=== PATIENT | male | born 1950 | race American Indian/Alaskan Native ===

== ENCOUNTER 2017-01-04 06:24 | Day surgery (SDC) | payer OTHER ==
--- NOTE | 2017-01-04 07:28 | Anesthesia Day of Surgery ---
Anesthesia Day of Surgery - Day of Surgery Patient Examined: Yes Patient H&P Reviewed: Yes Patient is NPO: Yes
--- NOTE | 2017-01-04 07:29 | Anesthesia Consultation ---
Anesthesia Consult and Med Hx Date of service: 01/04/17 - Airway Anesthetic Teeth Evaluation: Good (front tooth chip) ROM Head & Neck: Adequate Mental/Hyoid Distance: Adequate Mallampati Class: Class II Intubation Access Assessment: Probably Good - Pulmonary Exam CTA: Yes - Cardiac Exam Cardiac Exam: RRR - Pre-Operative Health Status ASA Pre-Surgery Classification: ASA2 Proposed Anesthetic Plan: MAC - Pulmonary Hx Smoking: No Hx Sleep Apnea: No - Cardiovascular System Hx Hypertension: Yes - Central Nervous System Hx Seizures: No CVA: No - Endocrine Hx Renal Disease: No Hx Liver Disease: No Hx Non-Insulin Dependent Diabetes: No - Additional Comments Anesthesia Medical History Comments: NAC
[2017-01-04] MEDS ORDERED: DIPRIVAN 10 MG/ML IV ONE ×2 (07:32)
[2017-01-04] MEDS ORDERED: NACL 0.9% 1000 ML 1,000 ML IV SCH (08:00)
[2017-01-04] MEDS ORDERED: XYLOCAINE MPF 2% ONE (08:30)
--- NOTE | 2017-01-04 08:36 | Short Stay Summary ---
Short Stay Documentation - Allergies and Medications Current Medications: Allergies Penicillins Allergy (Mild, Verified 01/04/17 07:46) Unknown Home Medications Medication Instructions Recorded Confirmed Last Taken Type Janumet 50-1,000 mg 1 tab PO DAILY 01/02/17 01/04/17 01/03/17 History Lisinopril 1 tab PO DAILY 01/02/17 01/04/17 01/03/17 History Active Medications Sodium Chloride (Nacl 0.9% 1000 Ml) 1,000 mls @ 50 mls/hr IV DIRECT MABEL Last Admin: 01/04/17 07:52 Dose: 50 mls/hr - Brief post op/procedure progress note Date of procedure: 01/04/17 Pre-op diagnosis: Colon cancer screening Post-op diagnosis: same (1. Poor prep 2. Internal hemorrhoids) Procedure: Colonoscopy Anesthesia: MAC Findings: as above Surgeon: JEWELL SCHMIDT Estimated blood loss: none Pathology: none Condition: stable - Disposition Condition at discharge: Stable Disposition: DC-01 TO HOME OR SELFCARE Short Stay Discharge Plan Activity: no restrictions Weight Bearing Status: Full Weight Bearing Diet: regular, low salt, diabetic Follow up with: REBA MORALES NP [Primary Care Provider] - 7 Days
[2017-01-04 09:05] VITALS: BP 143/85
--- NOTE | 2017-01-04 10:37 | Post Anesthesia Evaluation ---
- Post Anesthesia Evaluation Patient Participated: Yes Airway Patent: Yes Stable Respiratory Function: Yes Nausea/Vomiting: No Temp > 96.8F: Yes Pain Manageable: Yes Adequeate Hydration: Yes Anesthesia Complications: No Block Receding Appropriately: Not Applicable Patient on Ventilator: No
== END 2017-01-04 06:25 | disposition home or self-care (01) ==
LOC: GIO 06:24
PROVIDERS: ATTEND Internal Medicine Gastroenterology
DX: Z12.11 Encounter for screening for malignant neoplasm of colon (principal); K64.0 First degree hemorrhoids; I10 Essential (primary) hypertension; E11.9 Type 2 diabetes mellitus without complications; E78.00 Pure hypercholesterolemia, unspecified; Z98.890 Other specified postprocedural states; Z88.0 Allergy status to penicillin; Z79.899 Other long term (current) drug therapy
CPT/HCPCS: 45378; 82962; J2704; J7030

== ENCOUNTER 2017-03-22 12:40 | Inpatient (IN) | payer OTHER ==
[2017-03-22 14:16] LABS: Eosinophils % (Auto) 1.5 % (0.0-4.3); Hemoglobin 13.2 gm/dl (11.8-15.2); Mean Corpuscular HGB Conc 32 % (32-34); Mean Corpuscular Volume 78 fl (84-94); Platelet Count 208 K/mm3 (140-440); Red Blood Count 5.37 M/mm3 (3.65-5.03); Red Cell Distribution Width 13.4 % (13.2-15.2); White Blood Count 4.5 K/mm3 (4.5-11.0)
[2017-03-22 14:19] LABS: Mean Corpuscular Hemoglobin 25 pg (28-32)
[2017-03-22 14:21] LABS: Alanine Aminotransferase 13 units/L (7-56); Albumin 4.1 g/dL (3.9-5); Albumin/Globulin Ratio 1.2 %; Alkaline Phosphatase 132 units/L (35-129); Anion Gap 17 mmol/L; BUN/Creatinine Ratio 15.71; Blood Urea Nitrogen 11 mg/dL (9-20); Calcium 9.6 mg/dL (8.4-10.2); Carbon Dioxide 28 mmol/L (22-30); Chloride 92.4 mmol/L (98-107); Glucose 285 mg/dL (75-100); Lipase 16 units/L (13-60); Potassium 4.3 mmol/L (3.6-5.0); Sodium 133 mmol/L (137-145); Total Protein 7.4 g/dL (6.3-8.2)
[2017-03-22 16:39] LABS: Bilirubin,Urine NEG (Negative); Blood,Urine NEG (Negative); Ketones,Urine NEG (Negative); Leukocyte Esterase,Urine NEG (Negative); Mucus,Urine FEW /HPF; Nitrite,Urine NEG (Negative); Protein,Urine <15 mg/dL mg/dL (Negative); Urobilinogen,Urine < 2.0 mg/dL (<2.0); WBC,Urine < 1.0 /HPF (0.0-6.0)
[2017-03-22] MEDS ORDERED: D50W (25GM) Syringe IV PRN (20:33)
--- NOTE | 2017-03-22 23:53 | History and Physical Report ---
CHIEF COMPLAINT: Abdominal pain. HISTORY OF PRESENT ILLNESS: This is a 66-year-old man with a history of hypertension and diabetes, comes to the Emergency Room with complaints of abdominal pain, which started 2 months ago. This pain is in the lower abdomen, which he is only able to describe, intermittent in nature, lasting for a few seconds, intensity 8/10, radiating around to his back, he cannot identify exacerbating factors, it is relieved with pain medication given in the Emergency Room. He admits to nausea, no vomiting. He was seen by [facility] 2 months ago, who referred him to for a colonoscopy. He stated colonoscopy was negative, he had a CAT scan done, he is unclear of the results. He has a 15-pound weight loss over the last 2 months. REVIEW OF SYSTEMS: No fever, no chills. No earache or tinnitus. No chest pain or palpitation. No shortness of breath, cough. No blood in his stool. No dysuria or frequency. No rash or pruritus. No focal weakness or paresthesia. No hot or cold intolerance, polydipsia or polyuria. All other review of system is negative. PAST MEDICAL HISTORY: Hypertension, diabetes. PAST SURGICAL HISTORY: Hernia repair. SOCIAL HISTORY: Denies alcohol, tobacco, or drugs. FAMILY HISTORY: Hypertension. MEDICATIONS: Lisinopril 20 mg daily, Janumet. PHYSICAL EXAMINATION: GENERAL APPERANCE: The patient is sitting in bed, in no acute distress. VITAL SIGNS: Blood pressure 124/73 with pulse 82, respirations 16, and temperature 99.1. HEENT: Normocephalic, atraumatic. Pupils are equal, round, reactive to light. Extraocular movements are intact. No scleral icterus. No JVD. No thyromegaly or nodule. NECK: Supple. No carotid bruit. Mucous membranes moist. No exudate or erythema. HEART: S1, S2. Regular rate and rhythm. CHEST: Lungs clear to auscultation bilateral. Breathing is comfortable. ABDOMEN: Positive bowel sounds. Tender in the lower abdomen. No rebound or guarding. EXTREMITIES: No edema, cyanosis, clubbing. SKIN: No rash, warm and dry. NEUROLOGIC: Oriented x3. Cranial nerves 2-12 intact. Speech is fluent. Motor intact. LABORATORY DATA: As follows: Sodium 133, potassium 4.3, chloride 92.4, bicarbonate 28, BUN 11, creatinine 0.7, glucose 285, calcium 9.6, total bilirubin 0.5, AST 12, ALT 13, total protein 7.4, albumin 4.1, alkaline phosphatase 132. Urine is negative. White count 4.5, hemoglobin is 13.3, hematocrit 42, platelets 208. Ultrasound of the abdomen was limited secondary to overlying body gas. ASSESSMENT: 1. Abdominal pain. 2. Hypertension. 3. Diabetes type 2. PLAN: 1. Admit to medicine. 2. Check CAT scan of the abdomen and pelvis, start IV morphine, antiemetics. 3. Check fingersticks and initiate insulin sliding scale. 4. Continue appropriate outpatient medications, start DVT prophylaxis. [facility]# [id number] AES/NTS
--- NOTE | 2017-03-23 00:23 | Cat Scan Report ---
FINAL REPORT PROCEDURE: CT ABD AND PELVIS WO CONTRAST TECHNIQUE: Computerized axial tomography of the abdomen and pelvis was performed without intravenous contrast. This study is performed without intravascular contrast material and its sensitivity for abdominal and pelvic pathology, including neoplasms, inflammation, abscess, free fluid, thrombosis, arterial dissection and infarction, is reduced compared with a contrast enhanced study. HISTORY: abd pain COMPARISON: No prior studies are available for comparison. FINDINGS: Visualized lower thorax: No significant abnormality. Liver: Normal size and attenuation. Spleen: Normal size and attenuation. Gallbladder and biliary system: Normal. Pancreas: Normal. Adrenals: Normal. Kidneys: Normal. GI tract: The stomach is normal. A small hernia is identified. The small bowel has a normal caliber without obstruction, ileus or enteritis. The cecum and appendix region are normal. Colon has a normal appearance.. Lymph nodes and mesentery: Normal. Vasculature: Normal. Bladder: There is slight thickening of the urinary bladder wall, cystitis is possible.. Reproductive organs: Normal. Peritoneum: No free fluid. Musculoskeletal structures: No significant abnormality. Other: There is a moderate central ventral hernia just above the umbilicus. This contains some mesenteric fat. Near the umbilicus there is a small fluid collection with scarring this region. Small seroma this area is suspected. This measures approximately 3 centimeters in length and approximately 4 millimeters in width. Bilateral fat containing inguinal hernia cavities are noted.. IMPRESSION: There is no evidence of intestinal or urinary tract obstruction. No ileus or enteritis. Fat containing ventral hernia and bilateral fat containing inguinal hernias are noted. Slight scarring and small suspected seroma in the anterior abdominal wall soft tissues near the umbilicus..
[2017-03-23] MEDS: NACL 0.9% 1000 ML 1,000 ML IV SCH ×2 (06:31→16:09)
[2017-03-23] MEDS ORDERED: TYLENOL PO PRN (07:59)
[2017-03-23] MEDS ORDERED: ZOFRAN IV PRN (07:59)
[2017-03-23] MEDS ORDERED: DULCOLAX PR PRN (07:59)
[2017-03-23] MEDS ORDERED: MILK OF MAGNESIA PO PRN (07:59)
--- NOTE | 2017-03-23 08:21 | Ultrasound Report ---
RIGHT UPPER QUADRANT ULTRASOUND: HISTORY: Right upper quadrant pain. Technique: Transabdominal ultrasound imaging with Doppler interrogation. FINDINGS: The gallbladder is sonolucent with no evidence of stones, polyps or wall thickening. The common duct is normal in caliber. Images of the liver parenchyma, pancreas, right kidney and aorta are within normal limits. No perihepatic ascites. IMPRESSION: Unremarkable right upper quadrant ultrasound.
[2017-03-23] MEDS: LOVENOX SUB-Q SCH (09:28)
--- NOTE | 2017-03-23 10:18 | Gastroenterology Consultation ---
History of Present Illness - Reason for Consult Consult date: 03/23/17 abd pain Requesting physician: GUNJAN LAZAR - History of Present Illness Patient is a 66 y/o male who was admitted for abd pain. He reports intermittent abd pain that is generalized with occasional sharp radiating pain across his lower abdomen x 2 months. He also admits to N/V with eating or drinking, early satiety, and wt loss due to poor po intake. Underwent a colonoscopy by Dr. Saleem on 01/04/17 with results of a poor prep and internal hemorrhoids. He was referred to surgery [facility] for a surgical consult after the colonoscopy. Pt states the surgeon thought the etiology of his abd pain was coming from his gallbladder and was in the process of a workup but symptoms progressively worsened over the past week so he came to the ER. Abdominal CT scan revealed a ventral hernia and inguinal hernias but no obstruction, ileus, or enteritis. Abd U/s was negative with no evidence of stones. Pt resting in bed this am. No acute distress noted. C/o nausea w/o vomiting and generalized abd pain that is worse along lower abd and occasional constipation. Abd with generalized tenderness, non-distended, with positive bowel sounds. Last BM was yesterday with scant amount of brown stool. Denies fever, dysphagia, odynophagia, heartburn, melena, diarrhea, or hematochezia. No NSAID use. NO alcohol or substance abuse. No hx of liver diseae. No Fhx of GI cancers. Past History Past Medical History: diabetes, hypertension Past Surgical History: hernia repair Social history: lives with family. denies: smoking, alcohol abuse Family history: hypertension Medications and Allergies Allergies Allergy/AdvReac Type Severity Reaction Status Date / Time Penicillins Allergy Mild Unknown Verified 01/04/17 07:46 Home Medications Medication Instructions Recorded Confirmed Last Taken Type Janumet 50-1,000 mg 1 tab PO DAILY 01/02/17 03/23/17 01/03/17 History Lisinopril 1 tab PO DAILY 01/02/17 03/23/17 01/03/17 History Active Meds: Active Medications Acetaminophen (Tylenol) 650 mg PO Q4H PRN PRN Reason: Pain MILD(1-3)/Fever >100.5/ZAMBRANO Bisacodyl (Dulcolax) 10 mg FL QDAY PRN PRN Reason: Constipation unrelieved by MOM Dextrose (D50w (25gm) Syringe) 50 ml IV PRN PRN PRN Reason: Hypoglycemia Enoxaparin Sodium (Lovenox) 40 mg SUB-Q QDAY [facility] Last Admin: 03/23/17 09:28 Dose: 40 mg Sodium Chloride (Nacl 0.9% 1000 Ml) 1,000 mls @ 125 mls/hr IV DIRECT [facility] Last Admin: 03/23/17 06:31 Dose: 125 mls/hr Insulin Human Regular (Novolin R) 0 units SUB-Q ACHS MABEL PRN Reason: Protocol Last Admin: 03/23/17 09:27 Dose: 4 units Magnesium Hydroxide (Milk Of Magnesia) 30 ml PO Q4H PRN PRN Reason: Constipation Ondansetron HCl (Zofran) 4 mg IV Q8H PRN PRN Reason: N/V unrelieved by Reglan Review of Systems - Review of Systems All systems: negative Constitutional: weight loss, poor appetite Gastrointestinal: abdominal pain, nausea, vomiting, constipation, early satiety Exam - Constitutional Vital Signs: Temp Pulse Resp BP Pulse Ox 98.4 F 78 20 130/82 97 03/23/17 02:17 03/23/17 02:17 03/23/17 00:42 03/23/17 00:42 03/23/17 02:12 General appearance: no acute distress, well-nourished - EENT Eyes: PERRL, EOM intact ENT: hearing intact - Neck Neck: supple, normal ROM - Respiratory Respiratory: bilateral: CTA - Cardiovascular Rhythm: regular Heart Sounds: Present: S1 & S2 Extremities: No edema - Gastrointestinal General gastrointestinal: Present: soft, tender (generalized), non-distended, normal bowel sounds, other (Mid abd scar from hernia repair) - Integumentary Integumentary: Present: warm, dry - Neurologic Neurological: alert and oriented x3 - Labs CBC & Chem 7: 03/22/17 13:47 03/22/17 13:47 Lab Results: Laboratory Results - last 24 hr 03/22/17 03/22/17 03/23/17 20:22 23:21 05:41 POC Glucose 306 H 160 H 228 H Assessment and Plan 1.abd pain 2.N/V 3.early satiety -afebrile -WBC-WNL -abd CT- revealed ventral and inguinal hernias but no obstruction, ileus, or enteritis -abd U/S- was unremarkable with no evidence of stones -etiology of abd pain unclear -will order a HIDA scan for today -will schedule for EGD in am -continue supportive care -NPO after MN -will follow
--- NOTE | 2017-03-23 11:28 | Progress Note ---
Assessment and Plan Assessment and plan: Patient is 66-year-old man history of hypertension and type 2 dm who presents with severe abdominal pains. CT abd and pelvis without contrast: There is no evidence of intestinal or urinary tract obstruction, no ileus or enteritis. Fat containing ventral hernia and bilateral fat containing inguinal hernias are noted. Slight scarring and small suspected seroma in the anterior abdominal wall soft tissues near the umbilicus.. -Intractable abdominal pain: HIDA scan and EGD ordered -Constipation: Ordered suppository -Uncontrolled type 2 diabetes mellitus: ADA diet and ssi -hypertension: Continue to monitor -Ventral hernia and inguinal hernia: He scheduled to see outpatient surgeon -DVT prophylaxis: Subcutaneous Lovenox History Interval history: Patient was seen and examined. Follow-up on current diagnosis/abdominal pain. Overnight uneventful. Patient denies any chest pain, shortness breath, vomiting or severe headaches. Imaging, nursing note, chart, labs and old chart reviewed. Discussed with patient. Patient does have nausea and constipation. He was told something was wrong with his gallbladder prior to admission. Hospitalist Physical - Physical exam Narrative exam: GEN: WDWN, NAD, AWAKE, ALERT, ORIENTATED 3 HEENT: NCAT, EOMI, PERRL, OP Clear NECK: supple, no adenopathy, no thyromegaly, no JVD CVS/HEART: RRR, NORMAL S1S2, NO JVD, pulses present bilaterally CHEST/LUNGS: CTA B, Symmetrical chest expansion, good air entry bilaterally GI/Abdomen: soft, nondistended, diffuse tenderness, out of proportion to exam, good bowel sounds, no guarding or rebound /Bladder: no suprapubic tenderness, no CVA or paraspinal tenderness EXT/Skin: no c/c/e, no significant edema or obvious rash MSK: FROM x 4 Neuro: CN 2-12 grossly intact, no new focal deficits Psych: calm - Constitutional Vitals: Temp Pulse Resp BP Pulse Ox 98.4 F 78 20 130/82 97 03/23/17 02:17 03/23/17 02:17 03/23/17 00:42 03/23/17 00:42 03/23/17 02:12 Results - Labs CBC & Chem 7: 03/22/17 13:47 03/22/17 13:47 Labs: Laboratory Last Values WBC 4.5 K/mm3 (4.5-11.0) 03/22/17 13:47 RBC 5.37 M/mm3 (3.65-5.03) H 03/22/17 13:47 Hgb 13.2 gm/dl (11.8-15.2) 03/22/17 13:47 Hct 42.0 % (35.5-45.6) 03/22/17 13:47 MCV 78 fl (84-94) L 03/22/17 13:47 MCH 25 pg (28-32) L 03/22/17 13:47 MCHC 32 % (32-34) 03/22/17 13:47 RDW 13.4 % (13.2-15.2) 03/22/17 13:47 Plt Count 208 K/mm3 (140-440) 03/22/17 13:47 Lymph % (Auto) 40.1 % (13.4-35.0) H 03/22/17 13:47 [place] % (Auto) 7.8 % (0.0-7.3) H 03/22/17 13:47 Eos % (Auto) 1.5 % (0.0-4.3) 03/22/17 13:47 Baso % (Auto) 1.0 % (0.0-1.8) 03/22/17 13:47 Lymph # 1.8 K/mm3 (1.2-5.4) 03/22/17 13:47 [place] # 0.4 K/mm3 (0.0-0.8) 03/22/17 13:47 Eos # 0.1 K/mm3 (0.0-0.4) 03/22/17 13:47 Baso # 0.0 K/mm3 (0.0-0.1) 03/22/17 13:47 Seg Neutrophils % 49.6 % (40.0-70.0) 03/22/17 13:47 Seg Neutrophils # 2.2 K/mm3 (1.8-7.7) 03/22/17 13:47 Sodium 133 mmol/L (137-145) L 03/22/17 13:47 Potassium 4.3 mmol/L (3.6-5.0) 03/22/17 13:47 Chloride 92.4 mmol/L (98-107) L 03/22/17 13:47 Carbon Dioxide 28 mmol/L (22-30) 03/22/17 13:47 Anion Gap 17 mmol/L 03/22/17 13:47 BUN 11 mg/dL (9-20) 03/22/17 13:47 Creatinine 0.7 mg/dL (0.8-1.5) L 03/22/17 13:47 Estimated GFR > 60 ml/min 03/22/17 13:47 BUN/Creatinine Ratio 15.71 % 03/22/17 13:47 Glucose 285 mg/dL (75-100) H 03/22/17 13:47 POC Glucose 228 (70-105) H 03/23/17 05:41 Calcium 9.6 mg/dL (8.4-10.2) 03/22/17 13:47 Total Bilirubin 0.50 mg/dL (0.1-1.2) 03/22/17 13:47 AST 12 units/L (5-40) 03/22/17 13:47 ALT 13 units/L (7-56) 03/22/17 13:47 Alkaline Phosphatase 132 units/L (35-129) H 03/22/17 13:47 Total Protein 7.4 g/dL (6.3-8.2) 03/22/17 13:47 Albumin 4.1 g/dL (3.9-5) 03/22/17 13:47 Albumin/Globulin Ratio 1.2 % 03/22/17 13:47 Lipase 16 units/L (13-60) 03/22/17 13:47 Urine Color Straw (Yellow) 03/22/17 15:00 Urine Turbidity Clear (Clear) 03/22/17 15:00 Urine pH 7.0 (5.0-7.0) 03/22/17 15:00 Ur Specific [place] 1.006 (1.003-1.030) 03/22/17 15:00 Urine Protein <15 mg/dl mg/dL (Negative) 03/22/17 15:00 Urine Glucose (UA) >=500 mg/dL (Negative) 03/22/17 15:00 Urine Ketones Neg mg/dL (Negative) 03/22/17 15:00 Urine Blood Neg (Negative) 03/22/17 15:00 Urine Nitrite Neg (Negative) 03/22/17 15:00 Urine Bilirubin Neg (Negative) 03/22/17 15:00 Urine Urobilinogen < 2.0 mg/dL (<2.0) 03/22/17 15:00 Ur Leukocyte Esterase Neg (Negative) 03/22/17 15:00 Urine WBC (Auto) < 1.0 /HPF (0.0-6.0) 03/22/17 15:00 Urine RBC (Auto) 1.0 /HPF (0.0-6.0) 03/22/17 15:00 Urine Mucus Few /HPF 03/22/17 15:00
[2017-03-23] MEDS ORDERED: DULCOLAX PR ONE ×2 (12:00→16:00)
--- NOTE | 2017-03-23 13:27 | Admit Criteria Form ---
Admission Criteria Documentation: ABDOMINAL PAIN Clinical Indications for Admission to Inpatient Care ( [place]/check or initial the applicable condition/criteria): Admission is indicated for ANY ONE of the following (1)(2)(3)(4)(5)(6): [ ]I. Surgery needed that cannot be performed on ambulatory basis [ ]II. Peritoneal signs present (eg, rebound tenderness, rigidity) [ ]III. Evaluation requires patient to not eat or drink for extended period ( eg, more than 24 hours). [X]IV. Inpatient admission required[B] rather than observation care (see Abdominal Pain: Observation Care guideline as appropriate) because of ANY ONE of the following(7)(8)(9): [ ] a) Hemodynamic instability [X]b) Severe pain requiring acute inpatient management [ ]c) Identification of etiology or finding that requires inpatient care (eg, aortic dissection, free air,bowel ischemia)(10) [ ]d) Absent bowel sounds with complete ileus (11) [ ]e) Signs of intestinal obstruction[C] [ ]f) Suspected toxic megacolon [ ]g) Severe electrolyte abnormalities requiring inpatient care [ ]h) High fever or infection requiring inpatient admission as indicated by ANY ONE of the following (12)(13): [ ]i) Appropriate outpatient or observation care antimicrobial treatment unavailable, not effective, or not feasible [ ]ii) Documented bacteremia [ ]iii) Temperature greater than 104.9 degrees F (40.5 degrees C) (oral) [ ]iv) Temperature greater than 103.1 degrees F (39.5 degrees C) ( oral) or less than 96.8 degrees F (36 degrees C) (rectal) that does not respond to all emergency treatment measures [ ]i) IV fluid required rather than oral rehydration to replace significant ongoing (eg, for greater than 24 hours) losses (greater than 3 L/m2 per day)(14)(15) [ ]j) Percutaneous or open drainage (eg, abscess, biliary tract) procedures [ ]k) Parenteral nutrition regimen that must be implemented on inpatient basis [ ]l) Other condition, treatment, or monitoring requiring inpatient admission Extended stay beyond goal length of stay may be needed for (1)(3)(4)(10)(16): [ ]a) Surgery (e.g., colectomy, revascularization procedure) [ ]b) Persistent abdominal pain with suspected intra-abdominal process [ ]c) Diagnosed condition requiring continued stay (e.g., pancreatitis, complicated diverticulitis) The original [facility] [employer] content created by [facility] has been revised. The portions of the content which have been revised are identified through the use of italic text or in bold, and [facility] has neither reviewed nor approved the modified material.All other unmodified content is copyright [facility]. Please see references footnoted in the original [facility] [employer] edition 2017 Admission Criteria Met: Yes
[2017-03-23] MEDS ORDERED: KINEVAC IV ONE (14:11)
[2017-03-23] MEDS ORDERED: WATER FOR INJ (PF) IV SCH (15:00)
--- NOTE | 2017-03-23 16:04 | Nuclear Medicine Report ---
NUCLEAR MEDICINE HEPATOBILIARY SCAN: 03/23/17 CLINICAL: Abdominal pain. TECHNIQUE: 5.0mCi technetium 99m Choletec was injected intravenously. Serial images were obtained up to one hour. At one hour, 1.6 mcg of cholecystokinin was injected intravenously by slow infusion and gallbladder ejection fraction was measured. Nausea and a new pain was experienced with injection of the cholecystokinin. FINDINGS: Normal activity in the liver, bile ducts and small bowel. Normal gallbladder activity appears within ten minutes. Gallbladder ejection fraction of 53% is within the normal range. IMPRESSION: Normal study. No evidence of acute cholecystitis.
[2017-03-24] MEDS: NACL 0.9% 1000 ML 1,000 ML IV SCH ×2 (04:30→14:38)
[2017-03-24 06:15] LABS: Basophils % (Auto) 1.3 % (0.0-1.8); Eosinophils % (Auto) 0.9 % (0.0-4.3); Hematocrit 38.5 % (35.5-45.6); Hemoglobin 12.5 gm/dl (11.8-15.2); Mean Corpuscular HGB Conc 33 % (32-34); Mean Corpuscular Volume 78 fl (84-94); Platelet Count 198 K/mm3 (140-440); Red Blood Count 4.97 M/mm3 (3.65-5.03); White Blood Count 4.9 K/mm3 (4.5-11.0)
[2017-03-24 06:17] LABS: Mean Corpuscular Hemoglobin 25 pg (28-32)
[2017-03-24 06:28] LABS: INR 0.98 (0.87-1.13)
[2017-03-24 06:35] LABS: Anion Gap 22 mmol/L; BUN/Creatinine Ratio 18.33; Blood Urea Nitrogen 11 mg/dL (9-20); Calcium 8.9 mg/dL (8.4-10.2); Carbon Dioxide 22 mmol/L (22-30); Chloride 98.1 mmol/L (98-107); Glucose 142 mg/dL (75-100); Potassium 3.8 mmol/L (3.6-5.0); Sodium 138 mmol/L (137-145)
[2017-03-24] MEDS: LOVENOX SUB-Q SCH (13:13)
--- NOTE | 2017-03-24 13:27 | Anesthesia Consultation ---
Anesthesia Consult and Med Hx Date of service: 03/24/17 - Airway Anesthetic Teeth Evaluation: Good ROM Head & Neck: Adequate Mental/Hyoid Distance: Adequate Mallampati Class: Class II Intubation Access Assessment: Probably Good - Pulmonary Exam CTA: Yes - Cardiac Exam Cardiac Exam: RRR - Pre-Operative Health Status ASA Pre-Surgery Classification: ASA2 Proposed Anesthetic Plan: MAC - Pulmonary Hx Smoking: No Hx Sleep Apnea: No - Cardiovascular System Hx Hypertension: Yes (takes lisinopril) Hx Heart Attack/AMI: No - Central Nervous System Hx Seizures: No CVA: No - Endocrine Hx Renal Disease: No Hx Liver Disease: No Hx Non-Insulin Dependent Diabetes: Yes - Additional Comments Anesthesia Medical History Comments: NAC
--- NOTE | 2017-03-24 13:28 | Anesthesia Day of Surgery ---
Anesthesia Day of Surgery - Day of Surgery Patient Examined: Yes Patient H&P Reviewed: Yes Patient is NPO: Yes
--- NOTE | 2017-03-24 13:30 | Progress Note ---
Assessment and Plan Assessment and plan: Patient is 66-year-old man history of hypertension and type 2 dm who presents with severe abdominal pains. CT abd and pelvis without contrast: There is no evidence of intestinal or urinary tract obstruction, no ileus or enteritis. Fat containing ventral hernia and bilateral fat containing inguinal hernias are noted. Slight scarring and small suspected seroma in the anterior abdominal wall soft tissues near the umbilicus.. -Intractable abdominal pain: HIDA scan-negative and EGD today -Constipation: Ordered suppository -Uncontrolled type 2 diabetes mellitus: ADA diet and ssi -hypertension: Continue to monitor -Ventral hernia and inguinal hernia: He scheduled to see outpatient surgeon -DVT prophylaxis: Subcutaneous Lovenox History Interval history: Patient was seen and examined. Follow-up on current diagnosis/abdominal pain. Overnight uneventful. Patient denies any chest pain, shortness breath, vomiting or severe headaches. Imaging, nursing note, chart, labs and old chart reviewed. Discussed with patient. Patient does have nausea and constipation. He was told something was wrong with his gallbladder prior to admission. Hospitalist Physical - Physical exam Narrative exam: GEN: WDWN, NAD, AWAKE, ALERT, ORIENTATED 3 HEENT: NCAT, EOMI, PERRL, OP Clear NECK: supple, no adenopathy, no thyromegaly, no JVD CVS/HEART: RRR, NORMAL S1S2, NO JVD, pulses present bilaterally CHEST/LUNGS: CTA B, Symmetrical chest expansion, good air entry bilaterally GI/Abdomen: soft, nondistended, diffuse tenderness, out of proportion to exam, good bowel sounds, no guarding or rebound /Bladder: no suprapubic tenderness, no CVA or paraspinal tenderness EXT/Skin: no c/c/e, no significant edema or obvious rash MSK: FROM x 4 Neuro: CN 2-12 grossly intact, no new focal deficits Psych: calm - Constitutional Vitals: Temp Pulse Resp BP Pulse Ox 98.1 F 90 24 167/87 99 03/24/17 13:16 03/24/17 13:16 03/24/17 13:16 03/24/17 13:16 03/24/17 13:16 Results - Labs CBC & Chem 7: 03/24/17 05:47 03/24/17 05:47 Labs: Laboratory Last Values WBC 4.9 K/mm3 (4.5-11.0) 09/13/17 05:47 RBC 4.97 M/mm3 (3.65-5.03) 03/24/17 05:47 Hgb 12.5 gm/dl (11.8-15.2) 03/24/17 05:47 Hct 38.5 % (35.5-45.6) 03/24/17 05:47 MCV 78 fl (84-94) L 03/24/17 05:47 MCH 25 pg (28-32) L 03/24/17 05:47 MCHC 33 % (32-34) 03/24/17 05:47 RDW 13.0 % (13.2-15.2) L 03/24/17 05:47 Plt Count 198 K/mm3 (140-440) 03/24/17 05:47 Lymph % (Auto) 25.4 % (13.4-35.0) 03/24/17 05:47 [place] % (Auto) 9.0 % (0.0-7.3) H 03/24/17 05:47 Eos % (Auto) 0.9 % (0.0-4.3) 03/24/17 05:47 Baso % (Auto) 1.3 % (0.0-1.8) 03/24/17 05:47 Lymph # 1.2 K/mm3 (1.2-5.4) 03/24/17 05:47 [place] # 0.4 K/mm3 (0.0-0.8) 03/24/17 05:47 Eos # 0.0 K/mm3 (0.0-0.4) 03/24/17 05:47 Baso # 0.1 K/mm3 (0.0-0.1) 03/24/17 05:47 Seg Neutrophils % 63.4 % (40.0-70.0) 03/24/17 05:47 Seg Neutrophils # 3.1 K/mm3 (1.8-7.7) 03/24/17 05:47 PT 12.9 Sec. (12.2-14.9) 03/24/17 05:47 INR 0.98 (0.87-1.13) 03/24/17 05:47 Sodium 138 mmol/L (137-145) 03/24/17 05:47 Potassium 3.8 mmol/L (3.6-5.0) 03/24/17 05:47 Chloride 98.1 mmol/L (98-107) 03/24/17 05:47 Carbon Dioxide 22 mmol/L (22-30) 03/24/17 05:47 Anion Gap 22 mmol/L 03/24/17 05:47 BUN 11 mg/dL (9-20) 03/24/17 05:47 Creatinine 0.6 mg/dL (0.8-1.5) L 03/24/17 05:47 Estimated GFR > 60 ml/min 03/24/17 05:47 BUN/Creatinine Ratio 18.33 % 03/24/17 05:47 Glucose 142 mg/dL (75-100) H 03/24/17 05:47 POC Glucose 208 (70-105) H 03/24/17 11:11 Calcium 8.9 mg/dL (8.4-10.2) 03/24/17 05:47 Total Bilirubin 0.50 mg/dL (0.1-1.2) 03/22/17 13:47 AST 12 units/L (5-40) 03/22/17 13:47 ALT 13 units/L (7-56) 03/22/17 13:47 Alkaline Phosphatase 132 units/L (35-129) H 03/22/17 13:47 Total Protein 7.4 g/dL (6.3-8.2) 03/22/17 13:47 Albumin 4.1 g/dL (3.9-5) 03/22/17 13:47 Albumin/Globulin Ratio 1.2 % 03/22/17 13:47 Lipase 16 units/L (13-60) 03/22/17 13:47 Urine Color Straw (Yellow) 03/22/17 15:00 Urine Turbidity Clear (Clear) 03/22/17 15:00 Urine pH 7.0 (5.0-7.0) 03/22/17 15:00 Ur Specific [place] 1.006 (1.003-1.030) 03/22/17 15:00 Urine Protein <15 mg/dl mg/dL (Negative) 03/22/17 15:00 Urine Glucose (UA) >=500 mg/dL (Negative) 03/22/17 15:00 Urine Ketones Neg mg/dL (Negative) 03/22/17 15:00 Urine Blood Neg (Negative) 03/22/17 15:00 Urine Nitrite Neg (Negative) 03/22/17 15:00 Urine Bilirubin Neg (Negative) 03/22/17 15:00 Urine Urobilinogen < 2.0 mg/dL (<2.0) 03/22/17 15:00 Ur Leukocyte Esterase Neg (Negative) 03/22/17 15:00 Urine WBC (Auto) < 1.0 /HPF (0.0-6.0) 03/22/17 15:00 Urine RBC (Auto) 1.0 /HPF (0.0-6.0) 03/22/17 15:00 Urine Mucus Few /HPF 03/22/17 15:00
--- NOTE | 2017-03-24 13:32 | Discharge Summary ---
Providers - Providers Date of Admission: 03/22/17 19:45 Date of discharge: 03/24/17 Attending physician: DARREN NAVARRETE 03/23/17 07:59 Consult to Physician [CONS] Routine Consulting Provider: JAMES BILL Reason For Exam: abd pain Place consult to:: AVE WHITE Notified:: AVE Phone number called:: IN HOUSE Was contact made?: Yes If yes, spoke with:: AVE Time called:: 09:27 Primary care physician: FLAG MAKER Hospitalization Condition: Stable Hospital course: Patient is 66-year-old man history of hypertension and type 2 dm who presents with severe abdominal pains. CT abd and pelvis without contrast: There is no evidence of intestinal or urinary tract obstruction, no ileus or enteritis. Fat containing ventral hernia and bilateral fat containing inguinal hernias are noted. Slight scarring and small suspected seroma in the anterior abdominal wall soft tissues near the umbilicus.. -Intractable abdominal pain due to PUD/duodenal ulcer: HIDA scan-negative and EGD today -Constipation: Ordered suppository -Uncontrolled type 2 diabetes mellitus: ADA diet and ssi -hypertension: Continue to monitor -Ventral hernia and inguinal hernia: He scheduled to see outpatient surgeon -DVT prophylaxis: Subcutaneous Lovenox per GI, Dr. Noble: "Pre-op diagnosis: abdominal pain Post-op diagnosis: same Findings: EGD: medium hiatal hernia - mild gastritis - 5-6 small (4-6 mm) white based ulcers 2 nd portion duodenum (bx's) - negative other Plan: f/u bx's - PPI qd, add Carafate susp qid - advance diet - ok to d/c from GI standpoint w/ follow up primary GI" Disposition: DC-30 STILL A PATIENT Time spent for discharge: 34 minutes Core Measure Documentation - Palliative Care Palliative Care/ Comfort Measures: Not Applicable - Core Measures Any of the following diagnoses?: none - VTE Discharge Requirements Deep Vein Thrombosis/Pulmonary Embolism Present on Admission: No Has pt received <5 days of overlap therapy or INR<2.0: No Anticoagulant overlap therapy prescribed at discharge: No Contraindication No Overlap Therapy order at DC: Not Indicated Exam - Physical Exam Narrative exam: GEN: WDWN, NAD, AWAKE, ALERT, ORIENTATED 3 HEENT: NCAT, EOMI, PERRL, OP Clear NECK: supple, no adenopathy, no thyromegaly, no JVD CVS/HEART: RRR, NORMAL S1S2, NO JVD, pulses present bilaterally CHEST/LUNGS: CTA B, Symmetrical chest expansion, good air entry bilaterally GI/Abdomen: soft, nondistended, diffuse tenderness, out of proportion to exam, good bowel sounds, no guarding or rebound /Bladder: no suprapubic tenderness, no CVA or paraspinal tenderness EXT/Skin: no c/c/e, no significant edema or obvious rash MSK: FROM x 4 Neuro: CN 2-12 grossly intact, no new focal deficits Psych: calm - Constitutional Vitals: Temp Pulse Resp BP Pulse Ox 98.1 F 90 24 167/87 99 03/24/17 13:16 03/24/17 13:16 03/24/17 13:16 03/24/17 13:16 03/24/17 13:16 Plan Activity: other (no strenous activity until cleared by pcp) Diet: advance as tolerated Additional Instructions: Return to see Dr. Deal for hernias. Only take tylenol for pains. No aspirin, motrin, aleve, goodys, excedrin, ibuprofen, naprosyn, naproxen, mobic, celebrex Follow up with: JEFF NOBLE MD [Staff Physician] - 14 Days PRIMARY CAREMD [Primary Care Provider] - 7 Days IAN DEAL MD [Staff Physician] - 7 Days Prescriptions: Pantoprazole [Protonix] 40 mg PO QDAY #30 tablet Sucralfate [Carafate] 1 gm PO QID #14 day
[2017-03-24] MEDS ORDERED: DIPRIVAN 10 MG/ML IV ONE (13:57)
--- NOTE | 2017-03-24 14:38 | Post Operative Note ---
Pre-op diagnosis: abdominal pain Post-op diagnosis: same Findings: EGD: medium hiatal hernia - mild gastritis - 5-6 small (4-6 mm) white based ulcers 2 nd portion duodenum (bx's) - negative other Procedure: EGD Anesthesia: MAC Surgeon: JEFF SPEARS Estimated blood loss: none Pathology: list Specimen disposition: to lab Condition: stable Disposition: floor
--- NOTE | 2017-03-24 17:00 | Post Anesthesia Evaluation ---
- Post Anesthesia Evaluation Patient Participated: Yes Airway Patent: Yes Stable Respiratory Function: Yes Nausea/Vomiting: No Temp > 96.8F: Yes Pain Manageable: Yes Adequeate Hydration: Yes Anesthesia Complications: No
[2017-03-24 17:18] VITALS: BP 155/85
[2017-03-24] MEDS ORDERED: CARAFATE PO SCH (18:00)
== END 2017-03-24 18:47 | disposition home or self-care (01) | DRG 384 ==
LOC: ED 12:40 → 3A 19:45
PROVIDERS: ADMIT Internal Medicine Geriatric Medicine; ATTEND Internal Medicine
PROC: 0DB98ZX Excision of Duodenum, Via Natural or Artificial Opening Endoscopic, Diagnostic (ICD-10-PCS; principal; 2017-03-24)
DX: K26.9 Duodenal ulcer, unspecified as acute or chronic, without hemorrhage or perforation (principal); K59.00 Constipation, unspecified; I10 Essential (primary) hypertension; E11.9 Type 2 diabetes mellitus without complications; R68.81 Early satiety; K40.90 Unilateral inguinal hernia, without obstruction or gangrene, not specified as recurrent; K43.9 Ventral hernia without obstruction or gangrene; K29.70 Gastritis, unspecified, without bleeding; K44.9 Diaphragmatic hernia without obstruction or gangrene; Z88.0 Allergy status to penicillin; Z82.49 Family history of ischemic heart disease and other diseases of the circulatory system; Z79.899 Other long term (current) drug therapy
CPT/HCPCS: 36415; 74176; 76705; 78227; 80048; 80053; 81001; 82962; 83690; 85025; 85610; 88305; 88342; A9537; J1650; J1815; J2704; J2805; J7030